=== PATIENT | female | born 1955 | race Caucasian/White ===

== ENCOUNTER 2020-03-07 14:00 | Outpatient (RCR) | payer BC, SELFPAY ==
--- NOTE | 2020-01-20 08:31 | PTOPEVAL ---
PHYSICAL THERAPY EVALUATION AND PLAN OF CARE Thank you for referring Dixie Balbuena to [facility].? The patient is scheduled to be seen for therapy? 2x/week for 4 weeks. Please review, sign, date and return this plan of care VIVI. I agree with and certify that the following plan of care is medically necessary. Referring Physician Date Evaluation Diagnosis bilateral trochanteric bursitis Onset 1 year Subjective Information Dixie is here today for Query Text:As Reported By Patient/ diagnosis of bilateral Family trochanteric bursitis. States that it started after going to an [employer] show last fall. The pain is worsening. Reports that it started just on the sides of the hips, but now to lift the left knee up is very difficult. Pain Assessment Timing of Pain Assessment Timing of Pain Assessment Assessment Pain Scale Pain Scale Used Numeric (1 - 10) Self Report Pain Assessment Bilateral Hip(s) Reported Pain Level 6 Pain Description Aching,Sharp Pain Frequency Chronic,Continuous Lowest Pain Intensity 4 Greatest Pain Intensity 9 Pain Aggravating Factors Bending,Lifting,Palpation, Walking,Weight Bearing/ Standing Pain Behaviors None Pain Score Pain Score 6: Self Report Interventions Used Interventions Used By Clinicians Exercise,Heat Pain Relief Interventions Used By Medication Patient Lower Extremity Range of Motion Hip Range of Motion Right Hip Flexion Range of Motion - Active 130 Hip Medial Rotation - Passive 40 Hip Lateral Rotation - Passive 55 Left Hip Flexion Range of Motion - Active 120 Hip Medial Rotation - Passive 5 Hip Lateral Rotation - Active 25 Hip Range of Motion Limitations Bony Restriction,Soft Tissue Restriction Lower Extremity Muscle Strength Testing Hip Strength Right Hip Flexion Strength 5 Normal Hip Abduction Strength 3 Fair Left Hip Flexion Strength 4- Good - Hip Abduction Strength 3+ Fair + Knee Strength Bilateral Knee Flexion Strength 5 Normal Knee Extension Strength 5 Normal Muscle Length Testing Muscle Length Testing Naren Test Shortened Muscles Short (L) Iliopsoas,Short (R) Rectus Femoris,Short (L) Rectus Femoris Piriformis w/Hip Flexion >90 Degrees (R) Moderate Tightness,(L)
--- NOTE | 2020-02-08 07:18 | PCPTNOTE ---
Patient called & cancelled scheduled appointment this date because something came up.
--- NOTE | 2020-02-17 08:34 | PTOPEVAL ---
PHYSICAL THERAPY PLAN OF CARE UPDATE AND PROGRESS REPORT Thank you for referring Dixie Balbuena to [facility].? The patient is scheduled to be seen for therapy? 1x/week for 4 weeks. Please review, sign, date and return this plan of care VIVI. I agree with and certify that the following plan of care is medically necessary. Referring Physician Date Progress Diagnosis bilateral trochanteric bursitis Onset 1 year Subjective Information Dixie is here today for Query Text:As Reported By Patient/ diagnosis of bilateral Family trochanteric bursitis. Lifting her knee continues to be very difficult. Sometimes she thinks it is feeling better, but other times it continues to be very limiting. Self Report Pain Assessment Bilateral Hip(s) Reported Pain Level 4 Pain Description Sharp,Stabbing Pain Frequency Chronic,Continuous Pain Aggravating Factors ADL's,Bending,Lifting, Palpation,Walking,Weight Bearing/Standing Pain Behaviors None Interventions Used Interventions Used By Clinicians Exercise,Mobilization Pain Relief Interventions Used By Medication Patient Cervical and Lumbar ROM Lumbar ROM Lumbar Flexion Active Ankle Query Text:Hands to: Lower Extremity Range of Motion Hip Range of Motion Right Hip Flexion Range of Motion - Active 130 Hip Medial Rotation - Passive 40 Hip Lateral Rotation - Passive 55 Left Hip Flexion Range of Motion - Active 120 Hip Medial Rotation - Passive 5 Hip Lateral Rotation - Active 35 Hip Range of Motion Limitations Bony Restriction,Soft Tissue Restriction Lower Extremity Muscle Strength Testing Hip Strength Right Hip Flexion Strength 5 Normal Hip Abduction Strength 3+ Fair + Left Hip Flexion Strength 4+ Good + Hip Abduction Strength 3+ Fair + Knee Strength Bilateral Knee Flexion Strength 5 Normal Knee Extension Strength 5 Normal Muscle Length Testing Naren Test Shortened Muscles Short (L) Iliopsoas,Short (R) Rectus Femoris,Short (L) Rectus Femoris Piriformis w/Hip Flexion >90 Degrees (R) Mild Tightness,(L) Moderate Tightness Left Hamstring Length -5 Query Text:(90 - 90 Position) Right Hamstring Length -20 Query Text:(90 - 90 Position) Posture Supine Position Leg Length Discrepancy right pelvis anterior
--- NOTE | 2020-03-07 14:39 | PTOPEVAL ---
PHYSICAL THERAPY DISCHARGE NOTE Thank you for referring Dixie Balbuena to [facility].? Please review, sign, date and return this plan of care VIVI. I agree with and certify that the following plan of care is medically necessary. Referring Physician Date Discharge Diagnosis bilateral trochanteric bursitis Onset 1 year Subjective Information Dixie is here today for Query Text:As Reported By Patient/ diagnosis of bilateral Family trochanteric bursitis. Has good days and bad days with a lot more good days. Lifting the left knee is painful at the hip and trying to rotate the hip continues to be very painful. She does not complain of trochanteric pain, only pain in the groin. Self Report Pain Assessment Bilateral Hip(s) Reported Pain Level 2 Pain Description Sharp,Stabbing Pain Frequency Chronic,Continuous Pain Aggravating Factors ADL's,Bending,Lifting,Weight Bearing/Standing Interventions Used Interventions Used By Clinicians Exercise,Mobilization Pain Relief Interventions Used By Exercise,Medication Patient Lower Extremity Range of Motion Hip Range of Motion Right Hip Flexion Range of Motion - Active 130 Hip Medial Rotation - Passive 40 Hip Lateral Rotation - Passive 55 Left Hip Flexion Range of Motion - Active 130 Hip Medial Rotation - Passive 5 Hip Lateral Rotation - Active 40 Hip Range of Motion Limitations Bony Restriction,Soft Tissue Restriction Lower Extremity Muscle Strength Testing Hip Strength Right Hip Flexion Strength 5 Normal Hip Abduction Strength 4- Good - Left Hip Flexion Strength 4+ Good + Hip Abduction Strength 3+ Fair + Knee Strength Bilateral Knee Flexion Strength 5 Normal Knee Extension Strength 5 Normal Muscle Length Testing Muscle Length Testing Piriformis w/Hip Flexion >90 Degrees (L) Mild Tightness Left Hamstring Length -5 Query Text:(90 - 90 Position) Right Hamstring Length -10 Query Text:(90 - 90 Position) Palpation good tissue quality of glutes and QL Special Tests-Lower Extremity Hip Special Tests Hip Scouring Positive Left ANTHONY Positive Left FADIR Positive Left PT Clinical Summary Dixie is a 64 [facility]
== END 2020-03-08 10:51 | disposition home or self-care (01) ==
LOC: ANHPT 14:00
DX: M70.61 Trochanteric bursitis, right hip (principal); M70.62 Trochanteric bursitis, left hip
CPT/HCPCS: 97110; 97140; 97161

== ENCOUNTER 2020-11-09 07:30 | Outpatient (RCR) | payer BC, SELFPAY ==
--- NOTE | 2020-08-11 08:39 | PTOPEVAL ---
PHYSICAL THERAPY EVALUATION AND PLAN OF CARE Thank you for referring Dixie Balbuena to [facility].? The patient is scheduled to be seen for therapy? 2x/week for 4-10 weeks. Please review, sign, date and return this plan of care VIVI. I agree with and certify that the following plan of care is medically necessary. Referring Physician Date Attending Provider: Kwame Brown Evaluation Diagnosis left hip MARIANGEL Onset 08/04/2020 Subjective Information Dixie is 1 week s/p left MARIANGEL Query Text:As Reported By Patient/ and states she is doing well Family and the pain is much less than prior to surgery. States that she is very cautious to maintain her precautions. States that she is having difficulty in her bathroom and is having an especially difficult time getting into and out of bed and states that she needs assist to learn how to do all of her ADLs better. Self Report Pain Assessment Left Hip(s) Reported Pain Level 3 Pain Description Aching Pain Frequency Acute,Continuous Pain Score Pain Score 3: Self Report Interventions Used Interventions Used By Clinicians Exercise Pain Relief Interventions Used By Exercise,Ice,Medication Patient Lower Extremity Muscle Strength Testing Hip Strength Left Hip Flexion Strength 3 Fair Hip Extension Strength 3 Fair Hip Abduction Strength 3- Fair - Knee Strength Left Knee Flexion Strength 4 Good Knee Extension Strength 4 Good Muscle Length Testing Muscle Length Testing Two-Joint Hip Flexor Shortened Muscles Short (L) Iliopsoas,Short (L) Rectus Femoris Palpation Assessment Palpation Palpation left glutes and thigh thick with edema, non-painful to palpation Balance Assessment 5 Time Sit to Stand Time in Seconds 34.98 5 Time Sit to Stand Comments with arm rests Query Text:Normative Data: If Greater Than 15 Seconds, 74% Increase Risk for Recurrent Falls Gait Assessment Gait Assessment Ambulation Assistive Devices Walker, Wheeled Weight Bearing Status - Left As Tolerated Weight Bearing Status - Right Full Maintains Weight Bearing Status Yes Ambulation Ability Independent Gait Pattern Assessment Gait Pattern Observed Decreased Weight Shift - Left, Hip Hike - Left Other Gait Observations decreased
--- NOTE | 2020-09-07 10:28 | PTOPEVAL ---
PHYSICAL THERAPY PROGRESS REPORT AND PLAN OF CARE UPDATE Thank you for referring Dixie Balbuena to [facility].? The patient is scheduled to be seen for therapy? 2x/week for 4 weeks. Please review, sign, date and return this plan of care VIVI. I agree with and certify that the following plan of care is medically necessary. Referring Physician Date Attending Provider: Kwame Brown Progress Diagnosis left hip MARIANGEL Onset 08/04/2020 Subjective Information Dixie is 5weeks s/p left MARIANGEL. Query Text:As Reported By Patient/ She continues to c/o feeling Family like the left leg is longer than the right. Self Report Pain Assessment Left Hip(s) Reported Pain Level 0 Pain Frequency Acute,Continuous Pain Score Pain Score 0: Self Report Interventions Used Interventions Used By Clinicians Exercise Pain Relief Interventions Used By Ice Patient Lower Extremity Muscle Strength Testing Hip Strength Left Hip Flexion Strength 3 Fair Hip Extension Strength 3+ Fair + Hip Abduction Strength 3 Fair Hip Medial Rotation Strength 3- Fair - Hip Lateral Rotation Strength 2 Poor Hip Strength Comments painful with MMT to rotation at 90deg flexion Posture Posture Standing Position Posture Evaluation View Posterior Thoracic Spine Posture Fixed Scoliosis on (R) Lumbar Spine Posture Fixed Scoliosis on (L) Weight Distribution Balanced Leg Length Discrepancy tends to want to weight shift right and stand with left knee bent Hip Posture (L) Neutral,(R) Neutral Palpation Assessment Palpation Palpation increased tension to left quadriceps Gait Assessment Gait Pattern Assessment Gait Pattern Trendelenburg Gait Gait Pattern Observed Decreased Weight Shift - Left Other Gait Observations continues to have gait impairment with most significant finding of right hip drop in stance Stair Climbing Assessment Stair Climbing Assessment Stair Climbing Assistive Devices Railings Weight Bearing Status - Left Full Weight Bearing Status - Right Full Maintains Weight Bearing Status Yes Number of Steps Climbed (Steps) 4 Number of Repetitions (Repetitions) 5 Technique Alternating Steps Stair Climbing Direction Both Up and Down Stair Climbing Ability Independent Ability to Step Over a Curb Independent Stair Climbing Comments independent with bilateral
--- NOTE | 2020-09-28 08:05 | PCPTNOTE ---
Patient called & cancelled scheduled appointment this date due to family coming in from out of town visiting.
--- NOTE | 2020-10-06 08:27 | PTOPEVAL ---
PHYSICAL THERAPY PROGRESS REPORT Thank you for referring Dixie Balbuena to [facility].? The patient is scheduled to be seen for therapy? 1x/week for 4 weeks. Please review, sign, date and return this plan of care VIVI. I agree with and certify that the following plan of care is medically necessary. Referring Physician Date Attending Provider: Kwame Brown Diagnosis left hip MARIANGEL Onset 08/04/2020 Subjective Information Dixie is 9 weeks s/p left MARIANGEL Query Text:As Reported By Patient/ . She states that there is Family soreness in the mornings and her left Self Report Pain Assessment Left Hip(s) Reported Pain Level 1 Pain Description Soreness Pain Frequency Acute,Continuous Pain Score Pain Score 1: Self Report Interventions Used Interventions Used By Clinicians Exercise Pain Relief Interventions Used By Ice Patient Lower Extremity Muscle Strength Testing Hip Strength Left Hip Flexion Strength 4+ Good + Hip Extension Strength 3+ Fair + Hip Abduction Strength 4- Good - Hip Medial Rotation Strength 3+ Fair + Hip Lateral Rotation Strength 3+ Fair + Knee Strength Left Knee Flexion Strength 5 Normal Knee Extension Strength 4- Good - Posture Standing Position Posture Evaluation View Posterior Thoracic Spine Posture Fixed Scoliosis on (R) Lumbar Spine Posture Fixed Scoliosis on (L) Weight Distribution Balanced Hip Posture (L) Neutral,(R) Neutral Palpation Assessment Palpation Palpation continues to have tension to palpation in left ITB and glutes - tender over incision Rehab Teaching Rehab Teaching Teaching Topic Rehab Teaching Topic Components Home Program As Pertains To Precautions Recipient Patient Learning Preferences Demonstration,Discussion Barriers to Learning None Readiness to Learn Excellent Response Returns Demonstration, Verbalizes Understanding Method Demonstration,Discussion, Handout,One-On-One Instruction PT Clinical Summary Dixie is 5 weeks s/p left MARIANGEL. Rebhabilitation is going very well. Her gait pattern is improving and she is describing ability to perform many more functional tasks. She continues to pres
--- NOTE | 2020-11-09 08:15 | PTOPEVAL ---
PHYSICAL THERAPY DISCHARGE NOTE Thank you for referring Dixie Balbuena to [facility].? Please review, sign, date and return this plan of care VIVI. I agree with and certify that the following plan of care is medically necessary. Referring Physician Date Attending Provider: Kwame Brown Discharge Diagnosis left hip MARIANGEL Onset 08/04/2020 Subjective Information Reports that she rode her bike Query Text:As Reported By Patient/ and it felt really good - was Family sore afterwards. Pain Score Pain Score 0: Self Report Lower Extremity Muscle Strength Testing Hip Strength Left Hip Flexion Strength 5 Normal Hip Extension Strength 4 Good Hip Abduction Strength 4+ Good + Hip Medial Rotation Strength 4 Good Hip Lateral Rotation Strength 4 Good Knee Strength Left Knee Flexion Strength 5 Normal Knee Extension Strength 5 Normal Palpation Assessment Palpation Palpation improved tension throughout Gait Assessment Gait Pattern Assessment Gait Pattern Antalgic Gait Other Gait Observations significant improvement in gait pattern; mildly decreased left pelvic rotation Stair Climbing Assessment Stair Climbing Assessment Stair Climbing Assistive Devices None Weight Bearing Status - Left Full Weight Bearing Status - Right Full Maintains Weight Bearing Status Yes Number of Steps Climbed (Steps) 4 Number of Repetitions (Repetitions) 5 Technique Alternating Steps Stair Climbing Direction Both Up and Down Stair Climbing Ability Independent Ability to Step Over a Curb Independent General Exercise General Exercises Side Left Exercise Location hip Exercise Type Active,Resistive Exercise Description - forward walking lunges with Query Text:Record Sets, Reps, #4 dumbbell 50ft x2sets Resistance, and Position -half kneeling to standing -single leg sit<>stand -single leg stand -single leg heel raises PT Clinical Summary Dixie is s/p left MARIANGEL. Dixie presents today with significant strength improvements and significant improvement in gait/function. She is participating in more recreational activities at home independently and successfully. She recognizes a continued need for further
== END 2020-11-09 14:40 | disposition home or self-care (01) ==
LOC: ANHPT 07:30
DX: M16.12 Unilateral primary osteoarthritis, left hip (principal)
CPT/HCPCS: 97110; 97116; 97140; 97162